=== PATIENT | male | born 1960 | race Caucasian/White ===

== ENCOUNTER 2017-03-08 21:42 | Emergency (ER) | payer OTHER ==
[~2017-03-08] VITALS: Ht 180.3 cm; Wt 80.2 kg
[2017-03-08 21:47] VITALS: BP 128/77
== END 2017-03-08 23:17 | disposition home or self-care (01) ==
LOC: ED 22:45
DX: M70.21 Olecranon bursitis, right elbow (principal)
CPT/HCPCS: 99284

== ENCOUNTER 2017-05-03 13:10 | Emergency (ER) | payer MEDICAID, OTHER ==
[~2017-05-03] VITALS: Ht 180.3 cm; Wt 83.3 kg
[2017-05-03 13:15] VITALS: BP 168/73
== END 2017-05-03 15:40 | disposition home or self-care (01) ==
LOC: ED 15:35
DX: M70.21 Olecranon bursitis, right elbow (principal); I83.92 Asymptomatic varicose veins of left lower extremity
CPT/HCPCS: 99284